=== PATIENT | male | born 1960 | race Caucasian/White ===

== ENCOUNTER 2021-08-24 10:55 | Emergency (ER) | payer MEDICARE, MEDICAID | END 2021-08-24 13:46 | LOC: FB.ED 10:55 | DX: L03.116 Cellulitis of left lower limb (principal); E87.5 Hyperkalemia; R79.82 Elevated C-reactive protein (CRP); I11.0 Hypertensive heart disease with heart failure; I50.9 Heart failure, unspecified; E03.9 Hypothyroidism, unspecified; E66.9 Obesity, unspecified; Z68.45 Body mass index [BMI] 70 or greater, adult; Z79.899 Other long term (current) drug therapy; Z79.82 Long term (current) use of aspirin | CPT/HCPCS: 36415; 84132; 86140; 99284 ==

== ENCOUNTER 2022-01-06 19:14 | Emergency (ER) | payer MEDICARE, MEDICAID ==
[2022-01-06] MEDS ORDERED: Aspirin 81 MG Tab.Chew PO ONE (19:19)
[2022-01-06] MEDS ORDERED: Albuterol/Ipratropium 3.0-0.5 MG/3 ML Neb Soln NEB ONE (19:24)
[2022-01-06] MEDS ORDERED: Albuterol/Ipratropium 3.0-0.5 MG/3 ML Neb Soln ONE (19:26)
[2022-01-06 20:25] LABS: ESTIMATED GFR 69 mL/min (>60)
[2022-01-06] MEDS ORDERED: cefTRIAXone 1 GM Vial IM ONE (20:34)
[2022-01-06] MEDS ORDERED: Azithromycin 500 MG Tab PO ONE (20:35)
[2022-01-06 20:39] LABS: CORONAVIRUS COVID-19 NAA NEGATIVE (NEGATIVE)
== END 2022-01-06 23:30 ==
LOC: FB.ED 19:14
DX: R06.02 Shortness of breath (principal); I11.0 Hypertensive heart disease with heart failure; I50.9 Heart failure, unspecified; E66.9 Obesity, unspecified; Z79.82 Long term (current) use of aspirin; Z79.899 Other long term (current) drug therapy; Z20.822 Contact with and (suspected) exposure to COVID-19
CPT/HCPCS: 0241U; 36415; 71045; 80053; 83880; 84132; 84484; 85025; 93005; 94640; 96372; 99285; A9270; J0696; J7620

== ENCOUNTER 2022-07-24 13:47 | Emergency (ER) | payer MEDICARE, MEDICAID ==
[2022-07-24 15:11] LABS: ESTIMATED GFR 63 mL/min (>60)
[2022-07-24 15:31] LABS: PCO2 VENOUS,POC 68 mmHg (41-51); PH VENOUS,POC 7.39 pH Units (7.32-7.43)
[2022-07-24 15:32] LABS: BASE EXCESS VENOUS,POC 12 mmol/L (-2 - 3+)
[2022-07-24] MEDS ORDERED: Dexamethasone 4 MG Tab PO ONE (15:50)
[2022-07-24] MEDS ORDERED: Azithromycin 500 MG Tab PO ONE (15:50)
[2022-07-25] MEDS ORDERED: predniSONE 20 MG Tab PO SCH (09:00)
== END 2022-07-24 16:58 ==
LOC: FB.ED 13:47
DX: J44.1 Chronic obstructive pulmonary disease with (acute) exacerbation (principal); R79.82 Elevated C-reactive protein (CRP); E87.29 Other acidosis; I11.0 Hypertensive heart disease with heart failure; I50.9 Heart failure, unspecified; K21.9 Gastro-esophageal reflux disease without esophagitis; E03.9 Hypothyroidism, unspecified; E78.5 Hyperlipidemia, unspecified; E11.9 Type 2 diabetes mellitus without complications; E66.9 Obesity, unspecified; Z68.30 Body mass index [BMI] 30.0-30.9, adult; Z79.82 Long term (current) use of aspirin; Z79.899 Other long term (current) drug therapy
CPT/HCPCS: 36415; 71046; 80053; 83880; 84484; 85025; 86140; 93005; 93010; 99284; 99285; A9270-GY; J8540

== ENCOUNTER 2024-06-09 17:21 | Inpatient (IN) | payer MEDICARE, MEDICAID ==
[2024-06-09 18:28] LABS: BASOPHILS ABSOLUTE AUTO 0.1 x10-3/uL (0.0-0.3); BASOPHILS PERCENT AUTO 0.5 % (0.3-3.8); EOSINOPHILS ABSOLUTE AUTO 0.1 x10-3/uL (0.0-0.6); EOSINOPHILS PERCENT AUTO 0.8 % (0.1-6.8); HEMATOCRIT 43.7 % (38.3-50.1); LYMPHOCYTES ABSOLUTE AUTO 0.9 x10-3/uL (0.5-4.5); LYMPHOCYTES PERCENT AUTO 7.2 % (15.8-45.3); MEAN CORPUSCULAR HEMOGLOBIN 29.8 pg (27.0-33.3); MEAN CORPUSCULAR HGB CONC 32.1 g/dL (28.7-35.3); MEAN CORPUSCULAR VOLUME 92.7 fL (80.8-98.7); MEAN PLATELET VOLUME 7.7 fL (6.7-11.0); MONOCYTES PERCENT AUTO 7.8 % (5.5-15.2); NEUTROPHILS ABSOLUTE AUTO 10.3 x10-3/uL (1.7-6.9); NEUTROPHILS PERCENT AUTO 83.7 % (40.3-71.8); PLATELET COUNT,PLT 232 x10(3)uL (117-477); RED BLOOD CELL COUNT 4.71 x10(6)uL (3.90-5.90); RED CELL DISTRIBUTION WIDTH 15.1 % (12.4-15.0); WHITE BLOOD CELL COUNT,WBC 12.3 x10-3/uL (3.2-10.1)
[2024-06-09 18:37] LABS: BASE EXCESS VENOUS,POC 13 mmol/L (-2 - 3+); PCO2 VENOUS,POC 72 mmHg (41-51); PH VENOUS,POC 7.38 pH Units (7.32-7.43)
[2024-06-09 18:38] LABS: A/G RATIO 0.7; ALANINE AMINOTRANSFERASE,ALT 17 U/L (12-36); ALBUMIN 3.1 g/dL (3.2-4.6); ALKALINE PHOSPHATASE 93 IU/L (56-112); ASPARTATE AMNIOTRANSFERASE,AST 14 IU/L (5-25); BILIRUBIN TOTAL 0.3 mg/dL (0.1-1.3); BLOOD UREA NITROGEN,BUN 23 mg/dL (7-18); BUN/CREATININE RATIO 19.2 (9-20); CHLORIDE,CL 99 mmol/L (100-110); CREATININE 1.2 mg/dL (0.70-1.30); ESTIMATED GFR 68 mL/min (>60); GLUCOSE RANDOM 94 mg/dL (80-116); POTASSIUM,K 4.5 mmol/L (3.5-5.3); PROTEIN TOTAL,TP 7.8 g/dL (6.0-8.0); SODIUM,NA 141 mmol/L (135-145)
[2024-06-09 18:43] LABS: CARBON DIOXIDE,CO2 40 mmol/L (21-32)
[2024-06-09 18:45] LABS: TROPONIN I 13.7 pg/mL (4.0-60.3)
[2024-06-09] MEDS: methylPREDNISolone Sodium Succinate 125 MG/2 ML SDV IVPUSH ONE (19:50)
[2024-06-09] MEDS: Albuterol 0.083% 2.5 MG/3 ML Neb Soln NEB ONE (19:50)
[2024-06-09] MEDS ORDERED: Acetaminophen 325 MG Tab PO PRN (20:00)
[2024-06-09] MEDS ORDERED: Ondansetron 4 MG/2 ML SDV IV PRN (20:00)
[2024-06-09] MEDS ORDERED: Albuterol 0.083% 2.5 MG/3 ML Neb Soln NEB PRN (20:05)
[2024-06-09] MEDS ORDERED: traMADol 50 MG Tab PO PRN (20:42)
[2024-06-09] MEDS ORDERED: Carboxymethylcellulose Sodium 0.5% Ophth Soln 15 ML Bottle EYEBOTH PRN (20:42)
[2024-06-09] MEDS: atorvaSTATin 40 MG Tab PO SCH (21:21)
[2024-06-09] MEDS: Saccharomyces Boulardii (Probiotic) 250 MG Cap PO SCH (21:22)
[2024-06-09] MEDS: risperiDONE 1 MG Tab PO SCH (21:23)
[2024-06-09] MEDS: Formoterol/Mometasone 200-5 MCG 8.8 GM Inhaler INH SCH (21:25)
[2024-06-09] MEDS: Pantoprazole 40 MG Vial IVPUSH SCH (21:25)
[2024-06-09] MEDS: cefTRIAXone 2 GM Vial IVPUSH SCH (21:33)
[2024-06-09] MEDS: Enoxaparin 40 MG/0.4 ML Syringe SUBCUT SCH (21:39)
[2024-06-09] MEDS: VANCOmycin 2 GM/400 ML 2 GM in Premix Bag 1 BAG IV ONE (21:45)
[2024-06-09] MEDS: Albuterol/Ipratropium 3.0-0.5 MG/3 ML Neb Soln NEB SCH (21:47)
[2024-06-09] MEDS: Levofloxacin/Dextrose 5%-Water 750 MG in Premix Bag 1 BAG IV SCH (22:42)
[2024-06-10] MEDS: LORazepam 0.5 MG Tab PO PRN (01:29)
[2024-06-10] MEDS: methylPREDNISolone Sodium Succinate 40 MG/1 ML SDV IVPUSH SCH (07:18)
[2024-06-10] MEDS: Levothyroxine 100 MCG Tab PO SCH (07:18)
[2024-06-10 07:36] LABS: WHITE BLOOD CELL COUNT,WBC 15.5 x10-3/uL (3.2-10.1)
[2024-06-10 07:37] LABS: HEMATOCRIT 42.3 % (38.3-50.1); HEMOGLOBIN 13.6 g/dL (12.9-17.7); MEAN CORPUSCULAR HGB CONC 32.1 g/dL (28.7-35.3); MEAN CORPUSCULAR VOLUME 93.2 fL (80.8-98.7); MEAN PLATELET VOLUME 7.8 fL (6.7-11.0); PLATELET COUNT,PLT 261 x10(3)uL (117-477); RED BLOOD CELL COUNT 4.54 x10(6)uL (3.90-5.90); RED CELL DISTRIBUTION WIDTH 15.7 % (12.4-15.0)
[2024-06-10 07:59] LABS: ANISOCYTOSIS FEW; LYMPHOCYTES PERCENT MAN 5 % (13-37); MONOCYTES PERCENT MAN 1 % (4-12); SEG NEUTROPHILS PERCENT MAN 94 % (46-82)
[2024-06-10 08:24] LABS: BLOOD UREA NITROGEN,BUN 26 mg/dL (7-18); CALCIUM 8.9 mg/dL (8.6-10.2); CARBON DIOXIDE,CO2 38 mmol/L (21-32); CHLORIDE,CL 97 mmol/L (100-110); CREATININE 1.3 mg/dL (0.70-1.30); EST CRCL DRUG DOSING (CG) 50.59 mL/min; ESTIMATED GFR 62 mL/min (>60); GLUCOSE RANDOM 170 mg/dL (80-116); SODIUM,NA 139 mmol/L (135-145)
[2024-06-10] MEDS: Formoterol/Mometasone 200-5 MCG 8.8 GM Inhaler INH SCH (08:29)
[2024-06-10] MEDS: risperiDONE 1 MG Tab PO SCH ×2 (08:29→16:16)
[2024-06-10] MEDS: Furosemide 40 MG Tab PO SCH (08:30)
[2024-06-10] MEDS: buPROPion 150 MG Tab.ER PO SCH (08:31)
[2024-06-10] MEDS: Sodium Chloride 0.9% 10 ML Syringe FLUSH PRN (08:31)
[2024-06-10] MEDS ORDERED: VANCOmycin 1.5 GM/300 ML 1.5 GM in Premix Bag 1 BAG IV SCH (09:00)
[2024-06-10] MEDS: Aspirin 81 MG Tab.Chew PO SCH (09:12)
[2024-06-10] MEDS: DULoxetine 30 MG Cap PO SCH (16:16)
[2024-06-10] MEDS: atorvaSTATin 20 MG Tab PO SCH (16:16)
[2024-06-10] MEDS: Albuterol/Ipratropium 3.0-0.5 MG/3 ML Neb Soln INH PRN (20:19)
[2024-06-11] MEDS: Levothyroxine 100 MCG Tab PO SCH (06:03)
[2024-06-11 06:57] LABS: BASOPHILS ABSOLUTE AUTO 0.1 x10-3/uL (0.0-0.3); BASOPHILS PERCENT AUTO 0.5 % (0.3-3.8); EOSINOPHILS PERCENT AUTO 0.3 % (0.1-6.8); HEMATOCRIT 41.4 % (38.3-50.1); HEMOGLOBIN 13.3 g/dL (12.9-17.7); LYMPHOCYTES ABSOLUTE AUTO 1.1 x10-3/uL (0.5-4.5); LYMPHOCYTES PERCENT AUTO 8.1 % (15.8-45.3); MEAN CORPUSCULAR HEMOGLOBIN 30.1 pg (27.0-33.3); MEAN CORPUSCULAR HGB CONC 32.1 g/dL (28.7-35.3); MEAN CORPUSCULAR VOLUME 93.8 fL (80.8-98.7); MEAN PLATELET VOLUME 7.9 fL (6.7-11.0); MONOCYTES ABSOLUTE AUTO 0.9 x10-3/uL (0.0-1.2); MONOCYTES PERCENT AUTO 6.8 % (5.5-15.2); NEUTROPHILS ABSOLUTE AUTO 11.1 x10-3/uL (1.7-6.9); NEUTROPHILS PERCENT AUTO 84.3 % (40.3-71.8); PLATELET COUNT,PLT 244 x10(3)uL (117-477); RED BLOOD CELL COUNT 4.42 x10(6)uL (3.90-5.90); RED CELL DISTRIBUTION WIDTH 15.2 % (12.4-15.0); WHITE BLOOD CELL COUNT,WBC 13.2 x10-3/uL (3.2-10.1)
[2024-06-11 07:06] LABS: BLOOD UREA NITROGEN,BUN 32 mg/dL (7-18); BUN/CREATININE RATIO 24.6 (9-20); CALCIUM 8.6 mg/dL (8.6-10.2); CHLORIDE,CL 98 mmol/L (100-110); CREATININE 1.3 mg/dL (0.70-1.30); EST CRCL DRUG DOSING (CG) 50.59 mL/min; ESTIMATED GFR 62 mL/min (>60); GLUCOSE RANDOM 113 mg/dL (80-116); POTASSIUM,K 4.4 mmol/L (3.5-5.3); SODIUM,NA 142 mmol/L (135-145)
[2024-06-11 07:09] LABS: CARBON DIOXIDE,CO2 40 mmol/L (21-32)
[2024-06-11] MEDS: predniSONE 20 MG Tab PO SCH (08:01)
[2024-06-11] MEDS: Pantoprazole 40 MG Tab.CR PO SCH (10:51)
[2024-06-11] MEDS: Levofloxacin 750 MG Tab PO SCH (20:23)
[2024-06-12 09:04] VITALS: BP 125/67; PULSE 62
[2024-06-12 09:46] LABS: BLOOD UREA NITROGEN,BUN 30 mg/dL (7-18); BUN/CREATININE RATIO 21.4 (9-20); CALCIUM 8.7 mg/dL (8.6-10.2); CHLORIDE,CL 98 mmol/L (100-110); CREATININE 1.4 mg/dL (0.70-1.30); EST CRCL DRUG DOSING (CG) 46.98 mL/min; ESTIMATED GFR 56 mL/min (>60); GLUCOSE RANDOM 121 mg/dL (80-116); POTASSIUM,K 3.9 mmol/L (3.5-5.3); SODIUM,NA 141 mmol/L (135-145)
[2024-06-12 09:49] LABS: CARBON DIOXIDE,CO2 40 mmol/L (21-32)
== END 2024-06-12 11:19 | DRG 193 ==
LOC: FB.ED 17:21 → FB.MS 20:00
PROVIDERS: ADMIT Emergency Medicine; ATTEND Internal Medicine
DX: J18.9 Pneumonia, unspecified organism (principal); J96.21 Acute and chronic respiratory failure with hypoxia; J96.22 Acute and chronic respiratory failure with hypercapnia; E66.2 Morbid (severe) obesity with alveolar hypoventilation; Z66 Do not resuscitate; J44.0 Chronic obstructive pulmonary disease with (acute) lower respiratory infection; Z68.45 Body mass index [BMI] 70 or greater, adult; J44.1 Chronic obstructive pulmonary disease with (acute) exacerbation; J30.9 Allergic rhinitis, unspecified; H26.9 Unspecified cataract; H54.7 Unspecified visual loss; Z79.51 Long term (current) use of inhaled steroids; I11.0 Hypertensive heart disease with heart failure; F41.9 Anxiety disorder, unspecified; F32.A Depression, unspecified; F25.9 Schizoaffective disorder, unspecified; E11.9 Type 2 diabetes mellitus without complications; E03.9 Hypothyroidism, unspecified; E66.9 Obesity, unspecified; Z93.0 Tracheostomy status; Z79.899 Other long term (current) drug therapy; Z87.891 Personal history of nicotine dependence; Z79.82 Long term (current) use of aspirin; Z79.52 Long term (current) use of systemic steroids; Z79.890 Hormone replacement therapy
CPT/HCPCS: 36415; 71045; 80048; 80053; 83605; 83735; 83880; 84484; 85025; 85379; 86140; 87040; 87428-QW; 93005; 94150; 94640; 96374; 99222; 99232; 99238; 99285-25; A9270-GY; J0696; J1650; J1956; J2470; J2919; J3372; J7512; J7613

== ENCOUNTER 2024-07-25 14:26 | Emergency (ER) | payer MEDICARE, MEDICAID ==
[2024-07-25 15:21] LABS: BASOPHILS PERCENT AUTO 0.3 % (0.3-3.8); EOSINOPHILS ABSOLUTE AUTO 0.1 x10-3/uL (0.0-0.6); EOSINOPHILS PERCENT AUTO 1.3 % (0.1-6.8); HEMOGLOBIN 13.8 g/dL (12.9-17.7); LYMPHOCYTES PERCENT AUTO 8.3 % (15.8-45.3); MEAN CORPUSCULAR HEMOGLOBIN 29.5 pg (27.0-33.3); MEAN CORPUSCULAR HGB CONC 31.3 g/dL (28.7-35.3); MEAN CORPUSCULAR VOLUME 94.4 fL (80.8-98.7); MEAN PLATELET VOLUME 8.4 fL (6.7-11.0); MONOCYTES ABSOLUTE AUTO 0.8 x10-3/uL (0.0-1.2); MONOCYTES PERCENT AUTO 6.6 % (5.5-15.2); NEUTROPHILS ABSOLUTE AUTO 9.5 x10-3/uL (1.7-6.9); NEUTROPHILS PERCENT AUTO 83.5 % (40.3-71.8); PLATELET COUNT,PLT 244 x10(3)uL (117-477); RED BLOOD CELL COUNT 4.66 x10(6)uL (3.90-5.90); RED CELL DISTRIBUTION WIDTH 15.7 % (12.4-15.0); WHITE BLOOD CELL COUNT,WBC 11.4 x10-3/uL (3.2-10.1)
[2024-07-25 15:27] LABS: BLOOD UREA NITROGEN,BUN 24 mg/dL (7-18); CALCIUM 9.1 mg/dL (8.6-10.2); CARBON DIOXIDE,CO2 39 mmol/L (21-32); CHLORIDE,CL 97 mmol/L (100-110); CREATININE 1.2 mg/dL (0.70-1.30); EST CRCL DRUG DOSING (CG) 63.01 mL/min; ESTIMATED GFR 68 mL/min (>60); GLUCOSE RANDOM 96 mg/dL (80-116); POTASSIUM,K 4.8 mmol/L (3.5-5.3); SODIUM,NA 140 mmol/L (135-145)
[2024-07-25 15:28] LABS: BASE EXCESS VENOUS,POC 10 mmol/L (-2 - 3+); PCO2 VENOUS,POC 64 mmHg (41-51); PH VENOUS,POC 7.38 pH Units (7.32-7.43)
[2024-07-25 15:39] LABS: A/G RATIO 0.7; ALANINE AMINOTRANSFERASE,ALT 20 U/L (12-36); ALBUMIN 3.2 g/dL (3.2-4.6); ALKALINE PHOSPHATASE 81 IU/L (56-112); ASPARTATE AMNIOTRANSFERASE,AST 14 IU/L (5-25); BILIRUBIN TOTAL 0.2 mg/dL (0.1-1.3); PROTEIN TOTAL,TP 7.6 g/dL (6.0-8.0)
[2024-07-25 15:42] LABS: TROPONIN I 12.2 pg/mL (4.0-60.3)
[2024-07-25 15:47] LABS: CORONAVIRUS COVID-19 NAA NEGATIVE (NEGATIVE); INFLUENZA A NAA NEGATIVE (NEGATIVE); INFLUENZA B NAA NEGATIVE (NEGATIVE); RESPIRATORY SYNCYTIAL VIR NAA NEGATIVE (NEGATIVE)
== END 2024-07-25 16:55 ==
LOC: FB.ED 14:26
DX: J44.1 Chronic obstructive pulmonary disease with (acute) exacerbation (principal); I11.0 Hypertensive heart disease with heart failure; I50.9 Heart failure, unspecified; E03.9 Hypothyroidism, unspecified; E11.9 Type 2 diabetes mellitus without complications; E66.9 Obesity, unspecified; Z88.8 Allergy status to other drugs, medicaments and biological substances; Z79.82 Long term (current) use of aspirin; Z79.890 Hormone replacement therapy
CPT/HCPCS: 0241U; 36415; 71045; 80053; 82947; 83605; 83880; 84484; 85025; 85379; 86140; 99285

== ENCOUNTER 2025-01-25 12:15 | Emergency (ER) | payer MEDICARE, MEDICAID ==
[2025-01-25] MEDS: Dexamethasone 4 MG/ML 5 ML MDV IVPUSH ONE (12:55)
[2025-01-25] MEDS: Furosemide 40 MG/4 ML VIAL IVPUSH ONE (13:04)
[2025-01-25 13:10] LABS: BASE EXCESS VENOUS,POC 13 mmol/L (-2 - 3+); PCO2 VENOUS,POC 60 mmHg (41-51); PH VENOUS,POC 7.44 pH Units (7.32-7.43)
[2025-01-25 13:11] LABS: BASOPHILS ABSOLUTE AUTO 0.1 x10-3/uL (0.0-0.3); BASOPHILS PERCENT AUTO 0.8 % (0.3-3.8); EOSINOPHILS ABSOLUTE AUTO 0.1 x10-3/uL (0.0-0.6); EOSINOPHILS PERCENT AUTO 0.8 % (0.1-6.8); LYMPHOCYTES ABSOLUTE AUTO 0.8 x10-3/uL (0.5-4.5); LYMPHOCYTES PERCENT AUTO 6.4 % (15.8-45.3); MEAN PLATELET VOLUME 7.8 fL (6.7-11.0); MONOCYTES ABSOLUTE AUTO 0.8 x10-3/uL (0.0-1.2); MONOCYTES PERCENT AUTO 7.0 % (5.5-15.2); NEUTROPHILS ABSOLUTE AUTO 9.9 x10-3/uL (1.7-6.9); NEUTROPHILS PERCENT AUTO 85.0 % (40.3-71.8); PLATELET COUNT,PLT 241 x10(3)uL (117-477); RED BLOOD CELL COUNT 4.82 x10(6)uL (3.90-5.90); RED CELL DISTRIBUTION WIDTH 15.0 % (12.4-15.0); WHITE BLOOD CELL COUNT,WBC 11.7 x10-3/uL (3.2-10.1)
[2025-01-25 13:20] LABS: A/G RATIO 0.8; ALANINE AMINOTRANSFERASE,ALT 20 U/L (12-36); ASPARTATE AMNIOTRANSFERASE,AST 17 IU/L (5-25); BILIRUBIN TOTAL 0.3 mg/dL (0.1-1.3); BLOOD UREA NITROGEN,BUN 27 mg/dL (7-18); CHLORIDE,CL 96 mmol/L (100-110); CREATININE 1.0 mg/dL (0.70-1.30); EST CRCL DRUG DOSING (CG) 69.77 mL/min; ESTIMATED GFR 84 mL/min (>60); GLUCOSE RANDOM 111 mg/dL (80-116); POTASSIUM,K 5.0 mmol/L (3.5-5.3); PROTEIN TOTAL,TP 7.9 g/dL (6.0-8.0); SODIUM,NA 141 mmol/L (135-145)
[2025-01-25 13:21] LABS: CARBON DIOXIDE,CO2 42 mmol/L (21-32)
[2025-01-25 13:23] LABS: D-DIMER QUANTITATIVE 0.49 mg/LFEU (0.0-0.59)
[2025-01-25 13:27] LABS: INR 0.91 (1.00-1.24)
[2025-01-25 13:27] LABS: PRO B-TYPE NATRIUR PEPT,BNPPRO 76.0 pg/mL (<=125)
[2025-01-25 13:28] LABS: PTT,PARTIAL THROMBOPLSTIN TIME 24.2 SECONDS (24.4-33.2)
== END 2025-01-25 14:35 ==
LOC: FB.ED 12:15
DX: J96.21 Acute and chronic respiratory failure with hypoxia (principal); J96.22 Acute and chronic respiratory failure with hypercapnia; I11.0 Hypertensive heart disease with heart failure; I50.9 Heart failure, unspecified; J44.9 Chronic obstructive pulmonary disease, unspecified; E11.9 Type 2 diabetes mellitus without complications; E03.9 Hypothyroidism, unspecified; Z87.891 Personal history of nicotine dependence; Z88.1 Allergy status to other antibiotic agents; Z79.82 Long term (current) use of aspirin; Z79.899 Other long term (current) drug therapy
CPT/HCPCS: 36415; 71045; 80053; 83605; 83880; 84484; 85025; 85379; 85610; 85730; 87040; 87428; 93005; 96374; 96375; 99285; A9270; J1100; J1938

== ENCOUNTER 2025-02-21 13:43 | Emergency (ER) | payer MEDICARE, MEDICAID ==
[2025-02-21 14:02] LABS: BASOPHILS ABSOLUTE AUTO 0.0 x10-3/uL (0.0-0.3); BASOPHILS PERCENT AUTO 0.5 % (0.3-3.8); EOSINOPHILS ABSOLUTE AUTO 0.1 x10-3/uL (0.0-0.6); EOSINOPHILS PERCENT AUTO 1.7 % (0.1-6.8); LYMPHOCYTES ABSOLUTE AUTO 1.0 x10-3/uL (0.5-4.5); LYMPHOCYTES PERCENT AUTO 11.4 % (15.8-45.3); MEAN PLATELET VOLUME 7.3 fL (6.7-11.0); MONOCYTES ABSOLUTE AUTO 0.7 x10-3/uL (0.0-1.2); MONOCYTES PERCENT AUTO 7.7 % (5.5-15.2); NEUTROPHILS ABSOLUTE AUTO 6.9 x10-3/uL (1.7-6.9); NEUTROPHILS PERCENT AUTO 78.7 % (40.3-71.8); PLATELET COUNT,PLT 262 x10(3)uL (117-477); RED BLOOD CELL COUNT 4.69 x10(6)uL (3.90-5.90); RED CELL DISTRIBUTION WIDTH 15.4 % (12.4-15.0); WHITE BLOOD CELL COUNT,WBC 8.8 x10-3/uL (3.2-10.1)
[2025-02-21 14:13] LABS: A/G RATIO 0.8; ALANINE AMINOTRANSFERASE,ALT 12 U/L (12-36); ASPARTATE AMNIOTRANSFERASE,AST 11 IU/L (5-25); BILIRUBIN TOTAL 0.3 mg/dL (0.1-1.3); BLOOD UREA NITROGEN,BUN 25 mg/dL (7-18); CHLORIDE,CL 98 mmol/L (100-110); CREATININE 1.1 mg/dL (0.70-1.30); EST CRCL DRUG DOSING (CG) 63.43 mL/min; ESTIMATED GFR 75 mL/min (>60); GLUCOSE RANDOM 101 mg/dL (80-116); POTASSIUM,K 4.8 mmol/L (3.5-5.3); PROTEIN TOTAL,TP 7.3 g/dL (6.0-8.0); SODIUM,NA 142 mmol/L (135-145)
[2025-02-21 14:18] LABS: CARBON DIOXIDE,CO2 43 mmol/L (21-32)
[2025-02-21 15:59] LABS: APPEARANCE,URINE CLEAR (CLEAR); GLUCOSE,URINE NORMAL (NORMAL); OCCULT BLOOD,URINE NEGATIVE (NEGATIVE)
== END 2025-02-21 16:35 ==
LOC: FB.ED 13:43
DX: J96.21 Acute and chronic respiratory failure with hypoxia (principal); J96.22 Acute and chronic respiratory failure with hypercapnia; I11.0 Hypertensive heart disease with heart failure; I50.9 Heart failure, unspecified; E11.9 Type 2 diabetes mellitus without complications; E66.9 Obesity, unspecified; E03.9 Hypothyroidism, unspecified; J44.9 Chronic obstructive pulmonary disease, unspecified; Z79.899 Other long term (current) drug therapy; Z88.8 Allergy status to other drugs, medicaments and biological substances; Z79.890 Hormone replacement therapy; Z79.51 Long term (current) use of inhaled steroids; Z87.891 Personal history of nicotine dependence; Z68.45 Body mass index [BMI] 70 or greater, adult
CPT/HCPCS: 36415; 71045; 80053; 81003; 83735; 83880; 84484; 85025; 86140; 87428; 93005; 96374; 99285; A9270; J0696

== ENCOUNTER 2025-02-23 08:57 | Inpatient (IN) | payer MEDICARE, MEDICAID ==
[2025-02-23 12:18] LABS: BASOPHILS ABSOLUTE AUTO 0.1 x10-3/uL (0.0-0.3); BASOPHILS PERCENT AUTO 1.0 % (0.3-3.8); EOSINOPHILS ABSOLUTE AUTO 0.1 x10-3/uL (0.0-0.6); EOSINOPHILS PERCENT AUTO 1.5 % (0.1-6.8); LYMPHOCYTES ABSOLUTE AUTO 1.1 x10-3/uL (0.5-4.5); LYMPHOCYTES PERCENT AUTO 12.6 % (15.8-45.3); MEAN PLATELET VOLUME 7.8 fL (6.7-11.0); MONOCYTES ABSOLUTE AUTO 0.6 x10-3/uL (0.0-1.2); MONOCYTES PERCENT AUTO 6.6 % (5.5-15.2); NEUTROPHILS ABSOLUTE AUTO 6.9 x10-3/uL (1.7-6.9); NEUTROPHILS PERCENT AUTO 78.3 % (40.3-71.8); PLATELET COUNT,PLT 238 x10(3)uL (117-477); RED BLOOD CELL COUNT 4.74 x10(6)uL (3.90-5.90); RED CELL DISTRIBUTION WIDTH 15.6 % (12.4-15.0); WHITE BLOOD CELL COUNT,WBC 8.8 x10-3/uL (3.2-10.1)
[2025-02-23 12:19] LABS: BASE EXCESS VENOUS,POC 10 mmol/L (-2 - 3+); PCO2 VENOUS,POC 63 mmHg (41-51); PH VENOUS,POC 7.39 pH Units (7.32-7.43)
[2025-02-23 12:28] LABS: ALANINE AMINOTRANSFERASE,ALT 21 U/L (12-36); ASPARTATE AMNIOTRANSFERASE,AST 13 IU/L (5-25); BILIRUBIN TOTAL 0.3 mg/dL (0.1-1.3); BLOOD UREA NITROGEN,BUN 22 mg/dL (7-18); CHLORIDE,CL 97 mmol/L (100-110); CREATININE 0.9 mg/dL (0.70-1.30); EST CRCL DRUG DOSING (CG) 74.83 mL/min; ESTIMATED GFR 95 mL/min (>60); GLUCOSE RANDOM 119 mg/dL (80-116); POTASSIUM,K 4.6 mmol/L (3.5-5.3); PROTEIN TOTAL,TP 7.5 g/dL (6.0-8.0); SODIUM,NA 142 mmol/L (135-145)
[2025-02-23 12:42] LABS: A/G RATIO 0.7; CARBON DIOXIDE,CO2 39 mmol/L (21-32)
[2025-02-24] MEDS ORDERED: Nitroglycerin 0.4 MG Tab.SL SL PRN (08:58)
[2025-02-24] MEDS ORDERED: Nystatin Topical Powder 15 GM Bottle TOP PRN (08:58)
[2025-02-24] MEDS ORDERED: Non-Formulary Medication 1 Each (Bupropion Hcl [Wellbutrin Xl] 300 MG Tab.Er.24h) PO SCH (09:00)
[2025-02-24 09:07] LABS: BASOPHILS ABSOLUTE AUTO 0.0 x10-3/uL (0.0-0.3); BASOPHILS PERCENT AUTO 0.6 % (0.3-3.8); EOSINOPHILS ABSOLUTE AUTO 0.1 x10-3/uL (0.0-0.6); EOSINOPHILS PERCENT AUTO 1.2 % (0.1-6.8); LYMPHOCYTES ABSOLUTE AUTO 0.8 x10-3/uL (0.5-4.5); LYMPHOCYTES PERCENT AUTO 9.7 % (15.8-45.3); MEAN PLATELET VOLUME 7.3 fL (6.7-11.0); MONOCYTES ABSOLUTE AUTO 0.5 x10-3/uL (0.0-1.2); MONOCYTES PERCENT AUTO 5.9 % (5.5-15.2); NEUTROPHILS ABSOLUTE AUTO 6.5 x10-3/uL (1.7-6.9); NEUTROPHILS PERCENT AUTO 82.6 % (40.3-71.8); PLATELET COUNT,PLT 238 x10(3)uL (117-477); RED BLOOD CELL COUNT 4.60 x10(6)uL (3.90-5.90); RED CELL DISTRIBUTION WIDTH 15.5 % (12.4-15.0); WHITE BLOOD CELL COUNT,WBC 7.8 x10-3/uL (3.2-10.1)
[2025-02-24 09:11] LABS: BLOOD UREA NITROGEN,BUN 24 mg/dL (7-18); CHLORIDE,CL 98 mmol/L (100-110); CREATININE 1.2 mg/dL (0.70-1.30); EST CRCL DRUG DOSING (CG) 56.12 mL/min; ESTIMATED GFR 68 mL/min (>60); GLUCOSE RANDOM 165 mg/dL (80-116); POTASSIUM,K 4.4 mmol/L (3.5-5.3); SODIUM,NA 143 mmol/L (135-145)
[2025-02-24 09:16] LABS: CARBON DIOXIDE,CO2 44 mmol/L (21-32)
[2025-02-24 09:23] LABS: PRO B-TYPE NATRIUR PEPT,BNPPRO 87.0 pg/mL (<=125)
[2025-02-24] MEDS ORDERED: Carboxymethylcellulose Sodium 0.5% Ophth Soln 15 ML Bottle EYEBOTH PRN (09:25)
[2025-02-24] MEDS ORDERED: Aluminum Hydroxide/Magnesium Hydroxide Susp 30 ML Cup PO PRN (09:26)
[2025-02-24] MEDS: Fluticasone NASAL Spray 16 GM Bottle NASBOTH SCH (09:58)
[2025-02-24] MEDS: Formoterol/Mometasone 200-5 MCG 8.8 GM Inhaler INH SCH (10:02)
[2025-02-24] MEDS: buPROPion 150 MG Tab.ER PO SCH (10:02)
[2025-02-24] MEDS: Furosemide 40 MG/4 ML VIAL IVPUSH SCH (12:13)
[2025-02-24] MEDS: Levofloxacin/Dextrose 5%-Water 750 MG in Premix Bag 1 BAG IV SCH (12:51)
[2025-02-24 23:50] LABS: INFLUENZA A NAA NEGATIVE (NEGATIVE); INFLUENZA B NAA NEGATIVE (NEGATIVE); RESPIRATORY SYNCYTIAL VIR NAA NEGATIVE (NEGATIVE)
[2025-02-24 23:53] LABS: CORONAVIRUS COVID-19 NAA NEGATIVE (NEGATIVE)
[2025-02-26 10:49] LABS: BLOOD UREA NITROGEN,BUN 19 mg/dL (7-18); CHLORIDE,CL 96 mmol/L (100-110); CREATININE 1.1 mg/dL (0.70-1.30); EST CRCL DRUG DOSING (CG) 61.22 mL/min; ESTIMATED GFR 75 mL/min (>60); GLUCOSE RANDOM 113 mg/dL (80-116); POTASSIUM,K 4.3 mmol/L (3.5-5.3); SODIUM,NA 140 mmol/L (135-145)
[2025-02-26 10:54] LABS: CARBON DIOXIDE,CO2 40 mmol/L (21-32)
== END 2025-02-26 14:00 | DRG 193 ==
LOC: FB.ED 08:57 → FB.MS 14:04
PROVIDERS: ADMIT Family Medicine; ATTEND Internal Medicine
DX: J18.9 Pneumonia, unspecified organism (principal); J81.0 Acute pulmonary edema; J96.21 Acute and chronic respiratory failure with hypoxia; E66.9 Obesity, unspecified; Z66 Do not resuscitate; J96.22 Acute and chronic respiratory failure with hypercapnia; Z68.45 Body mass index [BMI] 70 or greater, adult; F33.1 Major depressive disorder, recurrent, moderate; Z79.890 Hormone replacement therapy; E66.2 Morbid (severe) obesity with alveolar hypoventilation; J44.1 Chronic obstructive pulmonary disease with (acute) exacerbation; J44.0 Chronic obstructive pulmonary disease with (acute) lower respiratory infection; G47.30 Sleep apnea, unspecified; J30.9 Allergic rhinitis, unspecified; H54.7 Unspecified visual loss; I11.0 Hypertensive heart disease with heart failure; I50.9 Heart failure, unspecified; F41.9 Anxiety disorder, unspecified; I25.10 Atherosclerotic heart disease of native coronary artery without angina pectoris; E11.9 Type 2 diabetes mellitus without complications; E03.9 Hypothyroidism, unspecified; Z98.890 Other specified postprocedural states; Z88.1 Allergy status to other antibiotic agents; Z79.82 Long term (current) use of aspirin; Z79.899 Other long term (current) drug therapy; Z79.52 Long term (current) use of systemic steroids; Z87.891 Personal history of nicotine dependence; Z99.81 Dependence on supplemental oxygen; Z93.0 Tracheostomy status; Z98.49 Cataract extraction status, unspecified eye
CPT/HCPCS: 36410; 36415; 71045; 80053; 85025; 94640 ×2; 99285 ×2; A9270; 80048; 83605; 83880; 84484; 86140; 87637; 93005; 93010; 99223; 99232; 99238; J0696; J1650; J1938; J1956